=== PATIENT | male | born 1955 | race Caucasian/White ===

== ENCOUNTER 2018-01-02 09:39 | Day surgery (SDC) | payer OTHER ==
[2018-01-02] MEDS ORDERED: ceFAZolin 2 GM/SWFI 2 GM/20 ML SYR IVP ONE (09:46)
[2018-01-02] MEDS ORDERED: LR 1,000 ML IV ONE (09:47)
[2018-01-02] MEDS ORDERED: LIDOCAINE 1% 2 ML INJ ID PRN (09:47)
--- NOTE | 2018-01-02 10:03 | PDHPUP ---
History & Physical Update H&P update statement: This history and physical update is based on an assessment of the patient which was completed after admission or registration (within 24 hours), but prior to the surgery/procedure. H&P update: H&P reviewed & patient examined, no change in patient's condition since H&P completed
[2018-01-02] MEDS ORDERED: BUPIVACAINE 0.5% 30 ML SDV ONE (10:57)
[2018-01-02] MEDS ORDERED: MIDAZOLAM 2 MG/2 ML VIAL IVP ONE (12:06)
[2018-01-02] MEDS ORDERED: PROMETHAZINE HCL 25 MG/ML INJ IVP PRN (12:07)
[2018-01-02] MEDS ORDERED: NALOXONE HCL 0.4 MG/ML INJ IVP PRN (12:07)
[2018-01-02] MEDS ORDERED: HYDROCODONE/APAP 5/325 TAB PO PRN (12:07)
[2018-01-02] MEDS ORDERED: MEPERIDINE 25 MG/ML SYR IVP PRN (12:07)
[2018-01-02] MEDS ORDERED: ONDANSETRON 4 MG/2 ML VIAL IVP PRN (12:07)
[2018-01-02] MEDS ORDERED: ACETAMINOPHEN 500 MG TAB PO PRN (12:07)
[2018-01-02] MEDS ORDERED: LR 500 ML IV PRN (12:07)
[2018-01-02] MEDS ORDERED: HYDROmorphONE/DILAUDID 2 MG/ML INJ IVP PRN (12:07)
[2018-01-02] MEDS ORDERED: oxyCODONE IR 5 MG TAB PO PRN (12:07)
--- NOTE | 2018-01-02 12:07 | PDANEPAE ---
ANE Past Medical History - Cardiovascular History Hx Hypertension: No Hx Arrhythmias: No Hx Chest Pain: No Hx Coronary Artery / Peripheral Vascular Disease: No Hx CHF / Valvular Disease: No Hx Palpitations: No - Pulmonary History Hx COPD: No Hx Asthma/Reactive Airway Disease: No Hx Recent Upper Respiratory Infection: No Hx Oxygen in Use at Home: No Hx Sleep Apnea: No Sleep Apnea Screening Result - Last Documented: Negative - Neurologic History Hx Cerebrovascular Accident: No Hx Seizures: No Hx Dementia: No - Endocrine History Hx Diabetes: No Obesity: no - Renal History Hx Renal Disorders: No - Liver History Hx Hepatic Disorders: No - Neurological & Psychiatric Hx Hx Neurological and Psychiatric Disorders: Yes Neurological / Psychiatric History Comment: MS,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 back surgery 2001. 2004 MRSA in back ANE Review of Systems Review of Systems: - Exercise capacity METS (RN): 4 METS ANE Patient History - Allergies Allergies/Adverse Reactions: glatiramer (copolymer 1) [From Copaxone] Allergy (Verified 12/30/17 16:51) Unknown morphine Allergy (Verified 01/02/18 10:01) Vomiting - Home Medications Home Medications: Atorvastatin Calcium 12/30/17 [Last Taken Unknown] - NPO status NPO Since - Liquids (Date): 01/01/18 NPO Since - Liquids (Time): 18:00 NPO Since - Solids (Date): 01/01/18 NPO Since - Solids (Time): 18:00 - Anes Hx Anes Hx: no prior problems - Smoking Hx Smoking Status: Current every day smoker - Family Anes Hx Family Hx Anesthesia Complications: none ANE Labs/Vital Signs - Vital Signs Blood Pressure: 155/89 Heart Rate: 85 Respiratory Rate: 18 O2 Sat (%): 97 Height: 177.8 cm Weight: 71.214 kg ANE Physical Exam - Airway Neck exam: FROM Mallampati Score: Class 2 Mouth exam: normal dental/mouth exam - Pulmonary Pulmonary: no respiratory distress, no rales or rhonchi, clear to auscultation - Cardiovascular Cardiovascular: regular rate and rhythym, no murmur, rub, or gallop - ASA Status ASA Status: III ANE Anesthesia Plan Anesthesia Plan: general endotracheal anesthesia
[2018-01-02] MEDS ORDERED: PROPOFOL 200 MG/20 ML VIAL ONE (12:20)
[2018-01-02] MEDS ORDERED: ROCURONIUM 50 MG/5 ML VIAL ONE (12:20)
[2018-01-02] MEDS ORDERED: fentaNYL 250 MCG/5 ML INJ ONE (12:20)
[2018-01-02] MEDS ORDERED: DEXAMETHASONE 4 MG/ML VIAL ONE ×2 (12:20)
[2018-01-02] MEDS ORDERED: LIDOCAINE 2% 5 ML SDV ONE (12:20)
[2018-01-02] MEDS ORDERED: ONDANSETRON 4 MG/2 ML VIAL ONE (12:20)
[2018-01-02] MEDS ORDERED: LIDOCAINE 2% JELLY 5 ML TUBE ONE (12:21)
[2018-01-02] MEDS ORDERED: KETOROLAC 30 MG/1 ML SDV ONE (13:10)
[2018-01-02] MEDS ORDERED: NEOSTIGMINE METHYLSULFATE 3 MG/3 ML SYR ONE (13:10)
[2018-01-02] MEDS ORDERED: GLYCOPYRROLATE 0.2 MG/1 ML VIAL ONE ×2 (13:10)
--- NOTE | 2018-01-02 13:19 | POSTOPPROG ---
Post Op Note Date of Operation: 01/02/18 Surgeon: Jameson Lewis Singer Back Tender: Bridget Pichardo Anesthesiologist: Lamine Varma Anesthesia: GET(General Endotracheal) Pre-op Diagnosis: infected umbilical/urachal mass Post-op Diagnosis: same Procedure: resection of umbilicus with mass Findings: gross purulence and large rounded cyst Inf/Abcess present in the surg proc area at time of surgery?: Yes Depth: Deep Incisional (Fascial) EBL: Minimal Complications: none Specimen(s): mass to pathology, swab for culture to lab
[2018-01-02] MEDS: fentaNYL 100 MCG/2 ML INJ IVP PRN ×2 (13:20→14:00)
--- NOTE | 2018-01-02 13:36 | POSTANESTH ---
Post Anesthetic Evaluation Cardiovascular Status: Normal, Stable, Similar to Pre-Op Cond Respiratory Status: Normal, Stable, Similar to Pre-op Cond. Level of Consciousness/Mental Status: Can Participate in Eval, Alert and Oriented Pain Control: Adequate, Prn Tx Ordered Nausea/Vomiting Control: Adequate, Prn Tx Ordered Complications Possibly Related to Anesthesia: None Noted
[2018-01-02] MEDS ORDERED: fentaNYL 100 MCG/2 ML INJ ONE (13:40)
[2018-01-02 15:35] VITALS: BP 146/81
== END 2018-01-02 15:40 | disposition home or self-care (01) ==
LOC: FSGY 09:39
PROVIDERS: ATTEND Surgery
PROC: 0JB80ZX Excision of Abdomen Subcutaneous Tissue and Fascia, Open Approach, Diagnostic (ICD-10-PCS; principal; 2018-01-02 11:15)
DX: L72.0 Epidermal cyst (principal); L02.216 Cutaneous abscess of umbilicus; B48.8 Other specified mycoses; G35 Multiple sclerosis; G57.93 Unspecified mononeuropathy of bilateral lower limbs; Z85.09 Personal history of malignant neoplasm of other digestive organs; Z72.0 Tobacco use
CPT/HCPCS: J0690; J1100; J1885; J2250; J2405; J2704; J2710; J3010

== ENCOUNTER → 2018-10-13 | Outpatient (CLI) | payer OTHER ==
[~2018-10-13] MED LIST: IOHEXOL 300 mgI/ML (OMNIPAQUE) 150 ML BTL IV ONE
== END ==
LOC: FIMAGING 10:11
PROVIDERS: ATTEND Physician Assistant
DX: R91.1 Solitary pulmonary nodule (principal); R97.0 Elevated carcinoembryonic antigen [CEA]; Z85.048 Personal history of other malignant neoplasm of rectum, rectosigmoid junction, and anus; J45.909 Unspecified asthma, uncomplicated; I81 Portal vein thrombosis; D44.12 Neoplasm of uncertain behavior of left adrenal gland
CPT/HCPCS: 82565-PO; Q9967

== ENCOUNTER 2018-10-19 08:51 | Outpatient (CLI) | payer OTHER ==
[2018-10-19 09:46] LABS: INR 0.92 (0.83-1.16); PROTIME(PATIENT) 12.6 SEC (12.0-15.0)
[2018-10-19] MEDS ORDERED: MIDAZOLAM 2 MG/2 ML VIAL IVP PRN (09:53)
[2018-10-19] MEDS ORDERED: NALOXONE HCL 0.4 MG/ML INJ IVP PRN (09:53)
[2018-10-19] MEDS ORDERED: FLUMAZENIL 0.5 MG/5 ML MDV IVP PRN (09:53)
[2018-10-19] MEDS ORDERED: fentaNYL 100 MCG/2 ML INJ IVP PRN (09:53)
[2018-10-19] MEDS ORDERED: LIDOCAINE 1% 300 MG/30 ML SDV ONE (09:55)
[2018-10-19] MEDS ORDERED: NS 1,000 ML IV SCH (10:00)
[2018-10-19] MEDS ORDERED: ONDANSETRON 4 MG/2 ML VIAL IVP PRN (11:20)
--- NOTE | 2018-10-19 11:31 | PDGENHP ---
History & Physical Chief Complaint: LT hepatic mass History of Present Illness: h/o rectal CA. new LT hepatic mass Pertinent Past, Social, Family History: nonsmoker. did not get radiation or chemotherapy. Relevant Physical Exam: large LT hepatic lobe mass. otherwise in no distress. Cardiorespiratory Assessment: rrr, cta
--- NOTE | 2018-10-19 11:38 | PDPROPOC ---
Sedation Plan of Care Sedation Plan of Care: vital signs stable, mental status noted, patient educated of risks, benefits, alternatives, patient can tolerate sedation ASA Classification: ASA 3 Planned drugs: fentanyl, midazolam Mallampati Score: Class 1 Mallampati Reference Image: Patient passed 3-3-2 rule?: Yes
--- NOTE | 2018-10-19 11:39 | PDRADPN ---
Radiology Procedure Note Date of Procedure: 10/19/18 Radiologist: Blanca Johnson Anesthesia: IV Sedation Pre-op Diagnosis: LT hepatic mass Post-op Diagnosis: same Indication: h/o rectal CA Procedure: US guided liver mass bx Inf/Abcess present in the surg proc area at time of surgery?: No
[2018-10-19 14:07] VITALS: BP 152/93
== END 2018-10-19 14:01 | disposition home or self-care (01) ==
LOC: FIMAGING 08:51
PROVIDERS: ATTEND Physician Assistant
PROC: 0FB03ZX Excision of Liver, Percutaneous Approach, Diagnostic (ICD-10-PCS; principal; 2018-10-19 11:13)
DX: C78.7 Secondary malignant neoplasm of liver and intrahepatic bile duct (principal)
CPT/HCPCS: J2250; J2310; J3010

== ENCOUNTER 2018-12-11 09:03 | Day surgery (SDC) | payer OTHER, MEDICARE ==
[2018-12-11] MEDS ORDERED: LIDOCAINE 1% 300 MG/30 ML SDV ONE ×2 (10:00→11:26)
[2018-12-11] MEDS ORDERED: fentaNYL 100 MCG/2 ML INJ IVP PRN (10:01)
[2018-12-11] MEDS ORDERED: ONDANSETRON 4 MG/2 ML VIAL IVP ONE (10:01)
[2018-12-11] MEDS ORDERED: FLUMAZENIL 0.5 MG/5 ML MDV IVP PRN (10:01)
[2018-12-11] MEDS ORDERED: MIDAZOLAM 2 MG/2 ML VIAL IVP PRN (10:01)
[2018-12-11] MEDS ORDERED: NALOXONE HCL 0.4 MG/ML INJ IVP PRN (10:01)
[2018-12-11] MEDS ORDERED: NALOXONE HCL 0.4 MG/ML INJ ONE (10:07)
[2018-12-11] MEDS ORDERED: FLUMAZENIL 0.5 MG/5 ML MDV IVP ONE (10:07)
[2018-12-11] MEDS ORDERED: MIDAZOLAM 2 MG/2 ML VIAL ONE (10:08)
[2018-12-11] MEDS ORDERED: fentaNYL 100 MCG/2 ML INJ ONE (10:08)
[2018-12-11 10:09] LABS: INR 1.06 (0.83-1.16); PROTIME(PATIENT) 13.4 SEC (12.0-15.0)
[2018-12-11] MEDS ORDERED: NS 1,000 ML IV SCH (10:15)
[2018-12-11] MEDS ORDERED: CEFAZOLIN 2 GM/DEXTROSE/100 ML BAG IV ONE (10:36)
[2018-12-11] MEDS ORDERED: ceFAZolin 2 GM/DEXTROSE 100 ML IV ONE (11:00)
[2018-12-11] MEDS ORDERED: ONDANSETRON 4 MG/2 ML VIAL ONE (12:06)
[2018-12-11 13:06] VITALS: BP 109/65
== END 2018-12-11 13:20 | disposition home or self-care (01) ==
LOC: FIMAGING 09:03
PROVIDERS: ATTEND Internal Medicine Hematology & Oncology
DX: C78.7 Secondary malignant neoplasm of liver and intrahepatic bile duct (principal); G35 Multiple sclerosis; Z85.048 Personal history of other malignant neoplasm of rectum, rectosigmoid junction, and anus; Z87.891 Personal history of nicotine dependence; Z80.0 Family history of malignant neoplasm of digestive organs; Z80.3 Family history of malignant neoplasm of breast
CPT/HCPCS: J0690; J1642; J2250; J2310; J2405; J3010

== ENCOUNTER → 2019-01-18 | Outpatient (CLI) | payer OTHER, MEDICARE | LOC: FIMAGING 15:44 | PROVIDERS: ATTEND Surgery | DX: I82.C11 Acute embolism and thrombosis of right internal jugular vein (principal); C18.9 Malignant neoplasm of colon, unspecified; Z95.828 Presence of other vascular implants and grafts ==

== ENCOUNTER 2019-02-27 07:23 | Inpatient (IN) | payer OTHER, MEDICARE | END 2019-03-06 16:03 | disposition home or self-care (01) | LOC: F3E 07:23 → F2N 13:46 → F1N 03-02 13:52 → F2N 15:08 ==